=== PATIENT | female | born 1985 | race Caucasian/White ===

== ENCOUNTER 2022-11-16 11:06 | Inpatient (IN) | payer MEDICAID ==
[~2022-11-16] VITALS: Ht 170.2 cm; Wt 124.7 kg
[2022-11-16 12:26] LABS: GLUCOMETER DEV NAME(LOC) POC.BV; POC SARS-COV2 AG, FIA NEGATIVE (NEGATIVE)
[2022-11-16] MEDS ORDERED: HALOPERIDOL 5 MG TABLET PO PRN (16:00)
[2022-11-16] MEDS ORDERED: PNEUMOCOCCAL VACCINE POLYVALENT 0.5 ML SYRINGE [PPSV23] IM. ONE (17:15)
[2022-11-16 18:02] VITALS: BP 115/78; PULSE 75; RESP 18; TEMP 97.7; O2SAT 98
[2022-11-16 21:00] VITALS: BP 117/74; PULSE 87; RESP 19; TEMP 97.5; O2SAT 97
[2022-11-16] MEDS: LORazepam 2 MG TABLET PO PRN (21:11)
[2022-11-16] MEDS: ZOLPIDEM TARTRATE 10 MG TABLET PO PRN (21:11)
[2022-11-16 22:34] VITALS: BP 117/74; PULSE 87; RESP 19; TEMP 97.5
[2022-11-17 08:16] VITALS: BP 100/66; PULSE 79; RESP 18; TEMP 98.1; O2SAT 99
[2022-11-17 08:17] LABS: BASOPHILS % (AUTO) 0.3 % (0.0-2.0); EOSINOPHILS % (AUTO) 1.5 % (1.0-6.0); HEMOGLOBIN 13.1 g/dL (12.0-16.0); LYMPHOCYTES # (AUTO) 1.5 K/uL (1.0-4.8); LYMPHOCYTES % (AUTO) 22.2 % (22.0-44.0); MEAN CORPUSCULAR HEMOGLOBIN 26.9 pg (26.0-34.0); MEAN CORPUSCULAR HGB CONC 31.9 G/dL (31.0-37.0); MEAN CORPUSCULAR VOLUME 84 fL (80-100); MONOCYTES # (AUTO) 0.3 K/uL (0.1-1.0); MONOCYTES % (AUTO) 4.4 % (2.0-9.0); NEUTROPHILS # (AUTO) 4.8 K/uL (1.8-7.7); NEUTROPHILS % (AUTO) 71.6 % (40.0-70.0); PLATELET COUNT (AUTO) 333 K/uL (150-450); RED BLOOD CELL COUNT(AUTO) 4.88 MIL/uL (4.00-5.20); RED CELL DISTRIBUTION WIDTH 15.6 % (11.5-14.5); WHITE BLOOD COUNT (AUTO) 6.7 K/uL (4.5-11.0)
[2022-11-17] MEDS: LORazepam 2 MG TABLET PO PRN (08:39)
[2022-11-17] MEDS: NICOTINE 14 MG/24 HOUR PATCH TD SCH (08:39)
[2022-11-17 08:40] LABS: ALANINE AMINOTRANSFERASE 28 U/L (12-78); ALBUMIN 3.2 g/dL (3.4-5.0); ALKALINE PHOSPHATASE 85 U/L (46-116); ANION GAP 9 mmol/L (8-16); ASPARTATE AMINOTRANSFERASE 22 U/L (15-37); BILIRUBIN,TOTAL 0.3 mg/dL (0.1-1.0); CALCIUM, TOTAL 8.8 mg/dL (8.8-10.5); CARBON DIOXIDE 26 mmol/L (22-29); CHLORIDE 103 mmol/L (98-107); CHOL/HDL RATIO 3.5 (3.9-5.7); CHOLESTEROL 145 mg/dL (131-200); FREE T4 (FREE THYROXINE) 0.88 ng/dL (0.76-1.46); GLOMERULAR FILTR. RATE CALC > 60 mL/min (>60); GLUCOSE,RANDOM 132 mg/dL (70-110); HCG,QUANTITATIVE < 1 mIU/mL (0-6); HDL CHOLESTEROL 42 mg/dL (40-60); LDL CHOL (CALC.) 94 mg/dL (0-130); POTASSIUM 4.1 mmol/L (3.5-5.1); SODIUM SERUM 138 mmol/L (136-145); T4 (THYROXINE) 7.6 mcg/dL (4.7-13.3); THYROID STIMULATING HORMONE 0.93 uIU/mL (0.36-3.74); TOTAL PROTEIN, SERUM 6.5 g/dL (6.4-8.2); TRIGLYCERIDES 44 mg/dL (15-150); UREA NITROGEN, BLOOD 6 mg/dL (7-18)
[2022-11-17 08:51] LABS: ALCOHOL, BLOOD (SERUM) < 3 mg/dL (0-10)
[2022-11-17] MEDS ORDERED: QUEtiapine FUMARATE 100 MG TABLET PO PRN (11:30)
[2022-11-17] MEDS ORDERED: MAGNESIUM HYDROXIDE SUSPENSION 30 ML UDCUP PO PRN (11:30)
[2022-11-17] MEDS ORDERED: TUBERCULIN, PURIFIED PROTEIN DERIVATIVE 5 TU/0.1 ML SYRINGE ID ONE (11:30)
[2022-11-17] MEDS ORDERED: GuaiFENesin/D-METHORPHAN [SUGAR-FREE] 200-20MG/10 ML SYRUP UDCUP PO PRN (11:30)
[2022-11-17] MEDS ORDERED: ACETAMINOPHEN 325 MG TABLET PO PRN (11:30)
[2022-11-17] MEDS ORDERED: HydrOXYzine PAMOATE 50 MG CAPSULE PO PRN (11:30)
[2022-11-17] MEDS ORDERED: MAG HYDROX/AL HYDROX/SIMETH ES 30 ML SUSPENSION UDCUP PO PRN (11:30)
[2022-11-17] MEDS ORDERED: LOPERAMIDE HCL 2 MG CAPSULE PO PRN (11:30)
[2022-11-17] MEDS: LURASIDONE HCL 40 MG TABLET PO SCH (17:00)
[2022-11-17] MEDS: THIAMINE 100 MG TABLET PO SCH (17:00)
[2022-11-17] MEDS: LITHIUM CARBONATE 300 MG CAPSULE PO SCH ×2 (17:00→23:28)
[2022-11-17 23:00] VITALS: BP 108/62; PULSE 78; RESP 18; TEMP 97.8; O2SAT 98
[2022-11-17] MEDS: MELATONIN 5 MG TABLET PO SCH (23:28)
[2022-11-17] MEDS: ZOLPIDEM TARTRATE 10 MG TABLET PO PRN (23:28)
[2022-11-17] MEDS: TraZODone HCL 150 MG TABLET PO SCH (23:28)
[2022-11-17] MEDS: HydrOXYzine HCL 25 MG TABLET PO SCH (23:28)
[2022-11-18] MEDS: FOLIC ACID 1 MG TABLET PO SCH (08:38)
[2022-11-18] MEDS: MULTIVITAMINS WITH MINERALS, THERAPEUTIC TABLET PO SCH (08:38)
[2022-11-18] MEDS: THIAMINE 100 MG TABLET PO SCH ×2 (08:38→17:11)
[2022-11-18] MEDS: OMEGA-3/DHA/EPA/FISH OIL 1,000 MG CAPSULE PO SCH (08:39)
[2022-11-18] MEDS: LITHIUM CARBONATE 300 MG CAPSULE PO SCH ×4 (08:39→20:26)
[2022-11-18] MEDS: LamoTRIgine 25 MG TABLET PO SCH ×2 (08:39→17:10)
[2022-11-18] MEDS: NICOTINE 14 MG/24 HOUR PATCH TD SCH (08:41)
[2022-11-18] MEDS ORDERED: FLUoxetine HCL 20 MG CAPSULE PO SCH (09:00)
[2022-11-18] MEDS ORDERED: LamoTRIgine 25 MG TABLET PO SCH (09:00)
[2022-11-18 09:26] LABS: FREE T4 (FREE THYROXINE) 0.77 ng/dL (0.76-1.46); THYROID STIMULATING HORMONE 1.22 uIU/mL (0.36-3.74)
[2022-11-18 12:25] VITALS: BP 124/85; PULSE 93; RESP 18; TEMP 97.8; O2SAT 96
[2022-11-18] MEDS: LURASIDONE HCL 40 MG TABLET PO SCH (17:00)
[2022-11-18] MEDS: TraZODone HCL 150 MG TABLET PO SCH (20:26)
[2022-11-18] MEDS: HydrOXYzine HCL 25 MG TABLET PO SCH (20:27)
[2022-11-18] MEDS: MELATONIN 5 MG TABLET PO SCH (20:33)
[2022-11-18 20:40] VITALS: BP 108/71; PULSE 78; RESP 18; TEMP 97.9; O2SAT 98
[2022-11-19 04:37] VITALS: BP 121/79; PULSE 78; RESP 18; TEMP 97.8; O2SAT 98
[2022-11-19 08:38] VITALS: BP 132/79; PULSE 89; RESP 17; TEMP 97.8; O2SAT 98
[2022-11-19] MEDS: NICOTINE 14 MG/24 HOUR PATCH TD SCH (09:25)
[2022-11-19] MEDS: LITHIUM CARBONATE 300 MG CAPSULE PO SCH ×4 (09:25→20:28)
[2022-11-19] MEDS: THIAMINE 100 MG TABLET PO SCH ×2 (09:26→16:37)
[2022-11-19] MEDS: LamoTRIgine 25 MG TABLET PO SCH ×2 (09:26→16:37)
[2022-11-19] MEDS: OMEGA-3/DHA/EPA/FISH OIL 1,000 MG CAPSULE PO SCH (09:26)
[2022-11-19] MEDS: FOLIC ACID 1 MG TABLET PO SCH (09:26)
[2022-11-19] MEDS: MULTIVITAMINS WITH MINERALS, THERAPEUTIC TABLET PO SCH (09:26)
[2022-11-19] MEDS: LURASIDONE HCL 40 MG TABLET PO SCH (16:37)
[2022-11-19] MEDS: TraZODone HCL 150 MG TABLET PO SCH (20:28)
[2022-11-19] MEDS: HydrOXYzine HCL 25 MG TABLET PO SCH (20:28)
[2022-11-19] MEDS: MELATONIN 5 MG TABLET PO SCH (20:41)
[2022-11-19 20:53] VITALS: TEMP 97.5
[2022-11-19] MEDS: ZOLPIDEM TARTRATE 10 MG TABLET PO PRN (22:41)
[2022-11-20] MEDS: LamoTRIgine 25 MG TABLET PO SCH ×2 (09:06→17:16)
[2022-11-20] MEDS: FOLIC ACID 1 MG TABLET PO SCH (09:06)
[2022-11-20] MEDS: LORazepam 2 MG TABLET PO PRN (09:07)
[2022-11-20] MEDS: MULTIVITAMINS WITH MINERALS, THERAPEUTIC TABLET PO SCH (09:07)
[2022-11-20] MEDS: THIAMINE 100 MG TABLET PO SCH ×2 (09:07→17:15)
[2022-11-20] MEDS: LITHIUM CARBONATE 300 MG CAPSULE PO SCH ×4 (09:07→20:26)
[2022-11-20] MEDS: OMEGA-3/DHA/EPA/FISH OIL 1,000 MG CAPSULE PO SCH (09:07)
[2022-11-20] MEDS: NICOTINE 14 MG/24 HOUR PATCH TD SCH (09:07)
[2022-11-20 10:03] VITALS: BP 105/65; PULSE 87; RESP 20; TEMP 97; O2SAT 99
[2022-11-20] MEDS ORDERED: ESZOPICLONE 3 MG TABLET PO PRN (15:45)
[2022-11-20] MEDS ORDERED: QUEtiapine FUMARATE 25 MG TABLET PO PRN (15:45)
[2022-11-20] MEDS: LURASIDONE HCL 60 MG TABLET PO SCH (17:15)
[2022-11-20 20:42] VITALS: BP 114/74; PULSE 95; RESP 18; TEMP 98.3; O2SAT 95
[2022-11-20] MEDS ORDERED: TraZODone HCL 100 MG TABLET PO SCH (21:00)
[2022-11-20] MEDS ORDERED: QUEtiapine FUMARATE 200 MG TABLET PO SCH (21:00)
[2022-11-21 08:34] LABS: APPEARANCE,URINE HAZY (CLEAR); BILIRUBIN,URINE NEGATIVE (NEGATIVE); COLOR,URINE LIGHT YELLOW (YELLOW); GLUCOSE, URINE (UA) NEGATIVE (NEGATIVE); KETONES,URINE NEGATIVE (NEGATIVE); LEUKOCYTE ESTERASE ,URINE NEGATIVE (NEGATIVE); NITRATE,URINE NEGATIVE (NEGATIVE); OCCULT BLOOD,URINE NEGATIVE (NEGATIVE); PH,URINE 6.5 (5.0-8.0); PH,URINE DRUG SCREEN 6.5 (5.0-8.0); PROTEIN,URINE NEGATIVE (NEGATIVE); SPECIFIC GRAVITIY, URINE 1.018 (1.003-1.030); UROBILINOGEN,URINE <=1.0 mg/dL (<=1.0)
[2022-11-21 08:40] VITALS: BP 112/59; PULSE 89; RESP 17; TEMP 97.9; O2SAT 95
[2022-11-21 08:45] LABS: ALCOHOL, URINE DRUG SCREEN NEGATIVE (NEGATIVE); AMPHET/METH SCREEN,URINE NEGATIVE (NEGATIVE); BARBITURATE SCREEN, URINE NEGATIVE (NEGATIVE); BENZODIAZEPINES SCREEN,URINE NEGATIVE (NEGATIVE); CANNABINOID SCREEN,URINE POSITIVE (NEGATIVE); COCAINE SCREEN,URINE NEGATIVE (NEGATIVE); METHADONE SCREEN, URINE NEGATIVE (NEGATIVE); OPIATE SCREEN,URINE NEGATIVE (NEGATIVE); PHENCYCLIDINE SCREEN,URINE NEGATIVE (NEGATIVE)
[2022-11-21] MEDS: THIAMINE 100 MG TABLET PO SCH ×2 (09:31→16:59)
[2022-11-21] MEDS: LITHIUM CARBONATE 300 MG CAPSULE PO SCH ×4 (09:31→21:03)
[2022-11-21] MEDS: LamoTRIgine 25 MG TABLET PO SCH ×2 (09:31→16:59)
[2022-11-21] MEDS: FOLIC ACID 1 MG TABLET PO SCH (09:31)
[2022-11-21] MEDS: OMEGA-3/DHA/EPA/FISH OIL 1,000 MG CAPSULE PO SCH (09:31)
[2022-11-21] MEDS: MULTIVITAMINS WITH MINERALS, THERAPEUTIC TABLET PO SCH (09:31)
[2022-11-21] MEDS: NICOTINE 14 MG/24 HOUR PATCH TD SCH (09:32)
[2022-11-21] MEDS: DOCUSATE SODIUM 250 MG CAPSULE PO SCH (10:02)
[2022-11-21] MEDS: LURASIDONE HCL 60 MG TABLET PO SCH (16:59)
[2022-11-21] MEDS ORDERED: GABAPENTIN 300 MG CAPSULE PO PRN (17:15)
[2022-11-21 20:48] VITALS: BP 108/66; PULSE 88; RESP 18; TEMP 97.6; O2SAT 96
[2022-11-21] MEDS ORDERED: TraZODone HCL 100 MG TABLET PO SCH (21:00)
[2022-11-22] MEDS: DOCUSATE SODIUM 250 MG CAPSULE PO SCH (06:38)
[2022-11-22 08:34] VITALS: BP 111/72; PULSE 85; RESP 18; TEMP 97.7; O2SAT 96
[2022-11-22] MEDS: LITHIUM CARBONATE 300 MG CAPSULE PO SCH ×4 (08:47→20:44)
[2022-11-22] MEDS: MULTIVITAMINS WITH MINERALS, THERAPEUTIC TABLET PO SCH (08:48)
[2022-11-22] MEDS: FOLIC ACID 1 MG TABLET PO SCH (08:48)
[2022-11-22] MEDS: OMEGA-3/DHA/EPA/FISH OIL 1,000 MG CAPSULE PO SCH (08:48)
[2022-11-22] MEDS: NICOTINE 14 MG/24 HOUR PATCH TD SCH (08:48)
[2022-11-22] MEDS: LamoTRIgine 25 MG TABLET PO SCH ×2 (08:48→17:11)
[2022-11-22] MEDS: THIAMINE 100 MG TABLET PO SCH ×2 (08:48→17:11)
[2022-11-22] MEDS ORDERED: BuPROPion HCL XL 150 MG ER TABLET PO SCH (09:00)
[2022-11-22] MEDS ORDERED: LURASIDONE HCL 80 MG TABLET PO SCH (17:00)
[2022-11-22] MEDS: LURASIDONE HCL 20 MG TABLET PO SCH (17:31)
[2022-11-22 20:39] VITALS: BP 120/58; PULSE 76; RESP 18; TEMP 98.1; O2SAT 97
[2022-11-22] MEDS: TraZODone HCL 100 MG TABLET PO SCH (20:45)
[2022-11-23] MEDS: LITHIUM CARBONATE 300 MG CAPSULE PO SCH ×3 (06:33→16:28)
[2022-11-23] MEDS: DOCUSATE SODIUM 250 MG CAPSULE PO SCH (06:33)
[2022-11-23] MEDS: OMEGA-3/DHA/EPA/FISH OIL 1,000 MG CAPSULE PO SCH (08:34)
[2022-11-23] MEDS: LamoTRIgine 25 MG TABLET PO SCH ×2 (08:34→16:28)
[2022-11-23] MEDS: THIAMINE 100 MG TABLET PO SCH ×2 (08:35→16:29)
[2022-11-23] MEDS: MULTIVITAMINS WITH MINERALS, THERAPEUTIC TABLET PO SCH (08:36)
[2022-11-23] MEDS: NICOTINE 14 MG/24 HOUR PATCH TD SCH (08:36)
[2022-11-23] MEDS: FOLIC ACID 1 MG TABLET PO SCH (08:36)
[2022-11-23 08:51] VITALS: BP 132/69; PULSE 93; RESP 18; TEMP 97.5; O2SAT 97
[2022-11-23] MEDS ORDERED: BuPROPion HCL XL 150 MG ER TABLET PO SCH (09:00)
[2022-11-23] MEDS: LURASIDONE HCL 20 MG TABLET PO SCH (16:29)
[2022-11-23 20:45] VITALS: BP 105/65; PULSE 67; RESP 19; TEMP 98; O2SAT 96
[2022-11-23] MEDS: TraZODone HCL 100 MG TABLET PO SCH (21:10)
[2022-11-23] MEDS: LITHIUM CARBONATE 600 MG CAPSULE PO SCH (21:10)
[2022-11-24] MEDS: DOCUSATE SODIUM 250 MG CAPSULE PO SCH (06:29)
[2022-11-24] MEDS: LITHIUM CARBONATE 300 MG CAPSULE PO SCH ×3 (07:10→17:07)
[2022-11-24 08:26] VITALS: BP 89/66; PULSE 91; RESP 17; TEMP 96.7; O2SAT 98
[2022-11-24 09:03] VITALS: BP 100/57; PULSE 69; RESP 18; O2SAT 97
[2022-11-24] MEDS: OMEGA-3/DHA/EPA/FISH OIL 1,000 MG CAPSULE PO SCH (09:30)
[2022-11-24] MEDS: NICOTINE 14 MG/24 HOUR PATCH TD SCH (09:30)
[2022-11-24] MEDS: MULTIVITAMINS WITH MINERALS, THERAPEUTIC TABLET PO SCH (09:30)
[2022-11-24] MEDS: BuPROPion HCL XL 150 MG ER TABLET PO SCH (09:31)
[2022-11-24] MEDS: FOLIC ACID 1 MG TABLET PO SCH (09:31)
[2022-11-24] MEDS: LamoTRIgine 25 MG TABLET PO SCH ×2 (09:31→17:07)
[2022-11-24] MEDS: THIAMINE 100 MG TABLET PO SCH ×2 (09:31→17:07)
[2022-11-24] MEDS: LURASIDONE HCL 60 MG TABLET PO SCH (17:07)
[2022-11-24] MEDS: TraZODone HCL 100 MG TABLET PO SCH (20:39)
[2022-11-24] MEDS: LITHIUM CARBONATE 600 MG CAPSULE PO SCH (20:39)
[2022-11-24 22:36] VITALS: BP 101/62; PULSE 77; RESP 18; TEMP 97.8; O2SAT 98
[2022-11-25] MEDS: LITHIUM CARBONATE 300 MG CAPSULE PO SCH ×3 (06:45→17:11)
[2022-11-25] MEDS: DOCUSATE SODIUM 250 MG CAPSULE PO SCH (06:45)
[2022-11-25] MEDS: OMEGA-3/DHA/EPA/FISH OIL 1,000 MG CAPSULE PO SCH (08:28)
[2022-11-25] MEDS: NICOTINE 14 MG/24 HOUR PATCH TD SCH (08:29)
[2022-11-25] MEDS: LamoTRIgine 25 MG TABLET PO SCH ×2 (08:29→17:11)
[2022-11-25] MEDS: MULTIVITAMINS WITH MINERALS, THERAPEUTIC TABLET PO SCH (08:29)
[2022-11-25] MEDS: FOLIC ACID 1 MG TABLET PO SCH (08:29)
[2022-11-25] MEDS: THIAMINE 100 MG TABLET PO SCH ×2 (08:29→17:11)
[2022-11-25] MEDS: BuPROPion HCL XL 150 MG ER TABLET PO SCH (08:29)
[2022-11-25 08:50] VITALS: BP 106/64; PULSE 88; RESP 17; TEMP 98; O2SAT 98
[2022-11-25] MEDS: LURASIDONE HCL 60 MG TABLET PO SCH (17:11)
[2022-11-25] MEDS: TraZODone HCL 100 MG TABLET PO SCH (20:14)
[2022-11-25] MEDS: LITHIUM CARBONATE 600 MG CAPSULE PO SCH (20:14)
[2022-11-25 20:35] VITALS: BP 103/61; PULSE 60; RESP 18; TEMP 97.7; O2SAT 100
[2022-11-26] MEDS: LITHIUM CARBONATE 300 MG CAPSULE PO SCH ×3 (06:09→16:44)
[2022-11-26] MEDS: DOCUSATE SODIUM 250 MG CAPSULE PO SCH (06:09)
[2022-11-26 09:00] VITALS: BP 104/56; PULSE 85; RESP 18; TEMP 98.2; O2SAT 98
[2022-11-26] MEDS: MULTIVITAMINS WITH MINERALS, THERAPEUTIC TABLET PO SCH (09:27)
[2022-11-26] MEDS: LamoTRIgine 25 MG TABLET PO SCH ×2 (09:28→16:44)
[2022-11-26] MEDS: FOLIC ACID 1 MG TABLET PO SCH (09:28)
[2022-11-26] MEDS: THIAMINE 100 MG TABLET PO SCH ×2 (09:28→16:44)
[2022-11-26] MEDS: BuPROPion HCL XL 150 MG ER TABLET PO SCH (09:28)
[2022-11-26] MEDS: OMEGA-3/DHA/EPA/FISH OIL 1,000 MG CAPSULE PO SCH (09:28)
[2022-11-26] MEDS: NICOTINE 14 MG/24 HOUR PATCH TD SCH (09:28)
[2022-11-26] MEDS: LURASIDONE HCL 60 MG TABLET PO SCH (16:44)
[2022-11-26] MEDS: TraZODone HCL 100 MG TABLET PO SCH ×2 (21:00→23:45)
[2022-11-26] MEDS: LITHIUM CARBONATE 600 MG CAPSULE PO SCH ×2 (21:00→23:45)
[2022-11-26] MEDS ORDERED: THIA100T80 PO (22:44)
[2022-11-26] MEDS ORDERED: FOLI-130 PO (22:44)
[2022-11-26] MEDS ORDERED: FLUO20CA36 PO (22:44)
[2022-11-26] MEDS ORDERED: LURA40TA2 PO (22:44)
[2022-11-26] MEDS ORDERED: LAMO25TA36 PO (22:44)
[2022-11-26] MEDS ORDERED: MULT-1239 PO (22:44)
[2022-11-26] MEDS ORDERED: OMEG-135 PO (22:44)
[2022-11-26] MEDS ORDERED: NICO-703 TD (22:44)
[2022-11-26] MEDS ORDERED: MELA5TAB40 PO (22:44)
[2022-11-26 23:43] VITALS: BP 124/69; PULSE 79; RESP 18; TEMP 98.2; O2SAT 97
[2022-11-27] MEDS: LITHIUM CARBONATE 300 MG CAPSULE PO SCH ×3 (06:53→17:15)
[2022-11-27] MEDS: DOCUSATE SODIUM 250 MG CAPSULE PO SCH (06:53)
[2022-11-27] MEDS: LamoTRIgine 25 MG TABLET PO SCH ×2 (08:38→17:15)
[2022-11-27] MEDS: MULTIVITAMINS WITH MINERALS, THERAPEUTIC TABLET PO SCH (08:38)
[2022-11-27] MEDS: OMEGA-3/DHA/EPA/FISH OIL 1,000 MG CAPSULE PO SCH (08:38)
[2022-11-27] MEDS: BuPROPion HCL XL 150 MG ER TABLET PO SCH (08:38)
[2022-11-27] MEDS: FOLIC ACID 1 MG TABLET PO SCH (08:38)
[2022-11-27] MEDS: THIAMINE 100 MG TABLET PO SCH (08:38)
[2022-11-27] MEDS: NICOTINE 14 MG/24 HOUR PATCH TD SCH (08:41)
[2022-11-27 08:42] VITALS: BP 104/58; PULSE 76; RESP 18; TEMP 97.9; O2SAT 96
[2022-11-27] MEDS: LURASIDONE HCL 60 MG TABLET PO SCH (17:15)
[2022-11-27] MEDS: PROPRANOLOL HCL 10 MG TABLET PO SCH ×2 (17:15→20:32)
[2022-11-27] MEDS: LITHIUM CARBONATE 600 MG CAPSULE PO SCH (20:32)
[2022-11-27] MEDS: TraZODone HCL 100 MG TABLET PO SCH (20:33)
[2022-11-27 20:48] VITALS: BP 115/80; PULSE 70; RESP 19; TEMP 97.9; O2SAT 97
[2022-11-27] MEDS ORDERED: ROPINIRole HCL 1 MG TABLET PO SCH (21:00)
[2022-11-28] MEDS: LITHIUM CARBONATE 300 MG CAPSULE PO SCH ×3 (06:26→17:00)
[2022-11-28] MEDS: DOCUSATE SODIUM 250 MG CAPSULE PO SCH (06:26)
[2022-11-28 08:37] VITALS: BP 107/59; PULSE 81; RESP 18; TEMP 97.5; O2SAT 98
[2022-11-28] MEDS: OMEGA-3/DHA/EPA/FISH OIL 1,000 MG CAPSULE PO SCH (09:39)
[2022-11-28] MEDS: BuPROPion HCL XL 150 MG ER TABLET PO SCH (09:39)
[2022-11-28] MEDS: PROPRANOLOL HCL 10 MG TABLET PO SCH ×3 (09:39→17:00)
[2022-11-28] MEDS: NICOTINE 14 MG/24 HOUR PATCH TD SCH (09:39)
[2022-11-28] MEDS: LamoTRIgine 25 MG TABLET PO SCH ×2 (09:40→17:00)
[2022-11-28] MEDS: MULTIVITAMINS WITH MINERALS, THERAPEUTIC TABLET PO SCH (09:40)
[2022-11-28 12:57] VITALS: BP 110/66; RESP 18; O2SAT 98
[2022-11-28 14:52] VITALS: RESP 18; O2SAT 98
[2022-11-28] MEDS: TraMADol HCL 50 MG TABLET PO PRN (14:52)
[2022-11-28 15:52] VITALS: RESP 18; O2SAT 98
[2022-11-28 16:43] VITALS: BP 100/69; RESP 18; O2SAT 100
[2022-11-28] MEDS: LURASIDONE HCL 60 MG TABLET PO SCH (17:00)
[2022-11-28 20:42] VITALS: BP 100/69; PULSE 83; RESP 18; TEMP 97.7; O2SAT 100
[2022-11-28] MEDS: LITHIUM CARBONATE 600 MG CAPSULE PO SCH (21:22)
[2022-11-28] MEDS: TraZODone HCL 100 MG TABLET PO SCH (21:23)
[2022-11-29 03:05] VITALS: RESP 18
[2022-11-29] MEDS: TraMADol HCL 50 MG TABLET PO PRN (03:07)
[2022-11-29 04:07] VITALS: RESP 16
[2022-11-29] MEDS: LITHIUM CARBONATE 300 MG CAPSULE PO SCH ×3 (07:01→17:07)
[2022-11-29] MEDS: DOCUSATE SODIUM 250 MG CAPSULE PO SCH (07:01)
[2022-11-29 08:50] VITALS: BP 100/60; PULSE 74; RESP 18; TEMP 97.9; O2SAT 98
[2022-11-29] MEDS: BuPROPion HCL XL 150 MG ER TABLET PO SCH (08:53)
[2022-11-29] MEDS: OMEGA-3/DHA/EPA/FISH OIL 1,000 MG CAPSULE PO SCH (08:53)
[2022-11-29] MEDS: NICOTINE 14 MG/24 HOUR PATCH TD SCH (08:54)
[2022-11-29] MEDS: MULTIVITAMINS WITH MINERALS, THERAPEUTIC TABLET PO SCH (08:54)
[2022-11-29] MEDS: LamoTRIgine 25 MG TABLET PO SCH ×2 (08:54→17:06)
[2022-11-29] MEDS: PROPRANOLOL HCL 20 MG TABLET PO SCH ×4 (08:58→21:53)
[2022-11-29 13:04] VITALS: BP 104/62; RESP 18; O2SAT 98
[2022-11-29] MEDS ORDERED: LAMO25TA36 PO (15:08)
[2022-11-29] MEDS ORDERED: PROP20TA96 PO (15:08)
[2022-11-29] MEDS ORDERED: OMEG-135 PO (15:08)
[2022-11-29] MEDS ORDERED: BUPR-49 PO (15:08)
[2022-11-29] MEDS ORDERED: TRAZ-257 PO (15:08)
[2022-11-29] MEDS ORDERED: LITH600C5 PO (15:08)
[2022-11-29] MEDS ORDERED: LURA40TA4 PO (15:08)
[2022-11-29] MEDS ORDERED: LITH300C3 PO (15:08)
[2022-11-29] MEDS ORDERED: ROPI2TAB26 PO (15:08)
[2022-11-29] MEDS ORDERED: LURASIDONE HCL 40 MG TABLET PO SCH (17:00)
[2022-11-29 17:04] VITALS: BP 101/62; RESP 17; O2SAT 98
[2022-11-29 20:01] VITALS: BP 100/61; PULSE 70; RESP 18; TEMP 97.8; O2SAT 98
[2022-11-29] MEDS: TraZODone HCL 100 MG TABLET PO SCH (21:52)
[2022-11-29] MEDS: LITHIUM CARBONATE 600 MG CAPSULE PO SCH (21:53)
[2022-11-30] MEDS: LITHIUM CARBONATE 300 MG CAPSULE PO SCH ×2 (06:50→12:08)
[2022-11-30] MEDS: DOCUSATE SODIUM 250 MG CAPSULE PO SCH (06:50)
[2022-11-30 08:29] VITALS: BP 119/68; PULSE 78; RESP 18; TEMP 97.9; O2SAT 98
[2022-11-30] MEDS: BuPROPion HCL XL 150 MG ER TABLET PO SCH (08:42)
[2022-11-30] MEDS: NICOTINE 14 MG/24 HOUR PATCH TD SCH (08:43)
[2022-11-30] MEDS: OMEGA-3/DHA/EPA/FISH OIL 1,000 MG CAPSULE PO SCH (08:43)
[2022-11-30] MEDS: MULTIVITAMINS WITH MINERALS, THERAPEUTIC TABLET PO SCH (08:43)
[2022-11-30] MEDS: PROPRANOLOL HCL 20 MG TABLET PO SCH ×2 (08:44→12:08)
[2022-11-30] MEDS: LamoTRIgine 25 MG TABLET PO SCH (08:49)
[2022-11-30] MEDS ORDERED: LAMO25TA36 PO (09:51)
[2022-11-30] MEDS ORDERED: BUPR-344 PO (09:54)
[2022-11-30] MEDS ORDERED: LITH300C3 PO ×2 (09:55)
[2022-11-30] MEDS ORDERED: TRAZ150T80 PO (09:56)
[2022-11-30] MEDS ORDERED: ROPI2TAB26 PO (09:56)
[2022-11-30] MEDS ORDERED: PROP10TA73 PO (09:56)
== END 2022-11-30 11:45 | disposition home or self-care (01) | DRG 753 ==
LOC: B3A 15:57 → B2S 11-17 18:46
PROVIDERS: ADMIT Psychiatry & Neurology Psychiatry; ATTEND Psychiatry & Neurology Psychiatry
DX: F31.4 Bipolar disorder, current episode depressed, severe, without psychotic features (principal); R45.851 Suicidal ideations; E66.01 Morbid (severe) obesity due to excess calories; G25.81 Restless legs syndrome; Z20.822 Contact with and (suspected) exposure to COVID-19; G47.00 Insomnia, unspecified; R73.9 Hyperglycemia, unspecified; R10.9 Unspecified abdominal pain; F43.10 Post-traumatic stress disorder, unspecified; F90.9 Attention-deficit hyperactivity disorder, unspecified type; Z68.41 Body mass index [BMI] 40.0-44.9, adult; Z59.00 Homelessness unspecified
CPT/HCPCS: 80053; 80061; 80178; 80307; 81003; 84436; 84439; 84443; 84702; 84703; 85025; 86592; 90732; G0480; Q9967

== ENCOUNTER 2022-11-17 18:37 | Emergency (ER) | payer MEDICAID, OTHER ==
[~2022-11-17] VITALS: Ht 170.2 cm; Wt 125.0 kg
[2022-11-17 19:07] VITALS: BP 115/67; PULSE 76; RESP 18; TEMP 97.6
[2022-11-17] MEDS ORDERED: ACETAMINOPHEN 500 MG TABLET PO ONE (19:15)
== END 2022-11-17 21:01 | disposition home or self-care (01) ==
LOC: EMS 18:38
DX: S00.33XA Contusion of nose, initial encounter (principal); Y04.8XXA Assault by other bodily force, initial encounter; Y93.89 Activity, other specified; Y92.89 Other specified places as the place of occurrence of the external cause; Y99.8 Other external cause status
CPT/HCPCS: 70450; 70486; 72125; 99285; Q9967

== ENCOUNTER 2022-11-26 17:29 | Emergency (ER) | payer OTHER ==
[~2022-11-26] VITALS: Ht 172.7 cm; Wt 111.4 kg
[2022-11-26 18:24] VITALS: TEMP 98.5
[2022-11-26 19:19] LABS: BASOPHILS % (AUTO) 0.3 % (0.0-2.0); EOSINOPHILS % (AUTO) 2.5 % (1.0-6.0); HEMATOCRIT 38.2 % (36-46); HEMOGLOBIN 11.8 g/dL (12.0-16.0); LYMPHOCYTES # (AUTO) 2.1 K/uL (1.0-4.8); LYMPHOCYTES % (AUTO) 16.2 % (22.0-44.0); MEAN CORPUSCULAR HEMOGLOBIN 25.9 pg (26.0-34.0); MEAN CORPUSCULAR VOLUME 84 fL (80-100); MONOCYTES # (AUTO) 0.6 K/uL (0.1-1.0); MONOCYTES % (AUTO) 4.5 % (2.0-9.0); NEUTROPHILS % (AUTO) 76.5 % (40.0-70.0); PLATELET COUNT (AUTO) 350 K/uL (150-450); RED BLOOD CELL COUNT(AUTO) 4.56 MIL/uL (4.00-5.20); RED CELL DISTRIBUTION WIDTH 15.4 % (11.5-14.5); WHITE BLOOD COUNT (AUTO) 13.1 K/uL (4.5-11.0)
[2022-11-26 19:22] LABS: APPEARANCE,URINE CLEAR (CLEAR); BILIRUBIN,URINE NEGATIVE (NEGATIVE); COLOR,URINE LIGHT YELLOW (YELLOW); GLUCOSE, URINE (UA) NEGATIVE (NEGATIVE); KETONES,URINE NEGATIVE (NEGATIVE); LEUKOCYTE ESTERASE ,URINE NEGATIVE (NEGATIVE); NITRATE,URINE NEGATIVE (NEGATIVE); OCCULT BLOOD,URINE NEGATIVE (NEGATIVE); PROTEIN,URINE NEGATIVE (NEGATIVE); UROBILINOGEN,URINE <=1.0 mg/dL (<=1.0)
[2022-11-26 19:26] LABS: ANION GAP 11 mmol/L (8-16); CALCIUM, TOTAL 8.6 mg/dL (8.8-10.5); CARBON DIOXIDE 29 mmol/L (22-29); CHLORIDE 103 mmol/L (98-107); CREATININE 0.65 mg/dL (0.60-1.30); GLOMERULAR FILTR. RATE CALC > 60 mL/min (>60); GLUCOSE,RANDOM 116 mg/dL (70-110); POTASSIUM 3.6 mmol/L (3.5-5.1); SODIUM SERUM 143 mmol/L (136-145); UREA NITROGEN, BLOOD 10 mg/dL (7-18)
[2022-11-26 19:28] LABS: BACTERIA,URINE None Seen /HPF (None Seen); RBC,URINE 0-2 /HPF (0-2); SQUAMOUS EPITHELIAL CELL,UR Few /LPF (None Seen); WBC,URINE 0-2 /HPF (0-5)
[2022-11-26 19:32] LABS: ALANINE AMINOTRANSFERASE 20 U/L (12-78); ALBUMIN 2.9 g/dL (3.4-5.0); ALKALINE PHOSPHATASE 70 U/L (46-116); ASPARTATE AMINOTRANSFERASE 18 U/L (15-37); BILIRUBIN,TOTAL 0.1 mg/dL (0.1-1.0); LIPASE 34 U/L (16-77)
[2022-11-26 20:20] VITALS: BP 115/53; PULSE 73; RESP 16
[2022-11-26] MEDS ORDERED: TraMADol HCL 50 MG TABLET PO ONE (20:45)
[2022-11-26] MEDS ORDERED: FOLI-130 PO (22:44)
[2022-11-26] MEDS ORDERED: LURA40TA2 PO (22:44)
[2022-11-26] MEDS ORDERED: THIA100T80 PO (22:44)
[2022-11-26] MEDS ORDERED: MELA5TAB40 PO (22:44)
[2022-11-26] MEDS ORDERED: MULT-1239 PO (22:44)
[2022-11-26] MEDS ORDERED: OMEG-135 PO (22:44)
[2022-11-26] MEDS ORDERED: NICO-703 TD (22:44)
[2022-11-26] MEDS ORDERED: FLUO20CA36 PO (22:44)
[2022-11-26] MEDS ORDERED: LAMO25TA36 PO (22:44)
== END 2022-11-26 23:30 | disposition home or self-care (01) ==
LOC: EMS 17:32
DX: K57.90 Diverticulosis of intestine, part unspecified, without perforation or abscess without bleeding (principal); F31.9 Bipolar disorder, unspecified; R10.12 Left upper quadrant pain; F41.9 Anxiety disorder, unspecified; F12.90 Cannabis use, unspecified, uncomplicated; Z98.84 Bariatric surgery status; Z98.890 Other specified postprocedural states
CPT/HCPCS: 74176; 80053; 81001; 83690; 84703; 85025; 93005; 99284

== ENCOUNTER 2023-04-17 21:58 | Emergency (ER) | payer OTHER ==
[~2023-04-17] VITALS: Ht 172.7 cm; Wt 114.0 kg
[~2023-04-17 21:58] MED LIST: BUPR-344 PO; BUPR-49 PO; LAMO25TA36 PO; LITH300C3 PO; LITH600C5 PO; LURA40TA2 PO; LURA40TA4 PO; OMEG-135 PO; PROP10TA73 PO; PROP20TA96 PO; ROPI2TAB26 PO; TRAZ-257 PO; TRAZ150T80 PO
[2023-04-17 22:21] VITALS: TEMP 98.7
[2023-04-17 23:39] LABS: BASOPHILS % (AUTO) 0.4 % (0.0-2.0); EOSINOPHILS % (AUTO) 2.2 % (1.0-6.0); HEMATOCRIT 36.4 % (36-46); HEMOGLOBIN 11.5 g/dL (12.0-16.0); LYMPHOCYTES # (AUTO) 2.6 K/uL (1.0-4.8); LYMPHOCYTES % (AUTO) 19.4 % (22.0-44.0); MEAN CORPUSCULAR HEMOGLOBIN 25.8 pg (26.0-34.0); MEAN CORPUSCULAR HGB CONC 31.6 G/dL (31.0-37.0); MEAN CORPUSCULAR VOLUME 82 fL (80-100); MONOCYTES # (AUTO) 0.9 K/uL (0.1-1.0); MONOCYTES % (AUTO) 6.9 % (2.0-9.0); NEUTROPHILS # (AUTO) 9.5 K/uL (1.8-7.7); NEUTROPHILS % (AUTO) 71.1 % (40.0-70.0); PLATELET COUNT (AUTO) 315 K/uL (150-450); RED BLOOD CELL COUNT(AUTO) 4.46 MIL/uL (4.00-5.20); RED CELL DISTRIBUTION WIDTH 17.4 % (11.5-14.5); WHITE BLOOD COUNT (AUTO) 13.4 K/uL (4.5-11.0)
[2023-04-17 23:50] LABS: ANION GAP 8 mmol/L (8-16); CALCIUM, TOTAL 8.9 mg/dL (8.8-10.5); CARBON DIOXIDE 25 mmol/L (22-29); CHLORIDE 105 mmol/L (98-107); CREATININE 1.06 mg/dL (0.60-1.30); GLOMERULAR FILTR. RATE CALC 59 mL/min (>60); GLUCOSE,RANDOM 86 mg/dL (70-110); POTASSIUM 3.3 mmol/L (3.5-5.1); SODIUM SERUM 138 mmol/L (136-145); UREA NITROGEN, BLOOD 12 mg/dL (7-18)
[2023-04-17 23:55] LABS: ALANINE AMINOTRANSFERASE 29 U/L (12-78); ALBUMIN 3.2 g/dL (3.4-5.0); ALKALINE PHOSPHATASE 75 U/L (46-116); ASPARTATE AMINOTRANSFERASE 28 U/L (15-37); BILIRUBIN,TOTAL 0.2 mg/dL (0.1-1.0)
[2023-04-17 23:59] LABS: LITHIUM 0.36 mmol/L (0.60-1.20)
[2023-04-18 00:02] LABS: ALCOHOL, BLOOD (SERUM) < 3 mg/dL (0-10)
[2023-04-18] MEDS ORDERED: POTASSIUM CHLORIDE 20 MEQ ER TABLET PO ONE (02:00)
[2023-04-18 02:48] LABS: APPEARANCE,URINE CLEAR (CLEAR); BILIRUBIN,URINE NEGATIVE (NEGATIVE); COLOR,URINE LIGHT YELLOW (YELLOW); GLUCOSE, URINE (UA) NEGATIVE (NEGATIVE); KETONES,URINE NEGATIVE (NEGATIVE); LEUKOCYTE ESTERASE ,URINE NEGATIVE (NEGATIVE); NITRATE,URINE NEGATIVE (NEGATIVE); OCCULT BLOOD,URINE NEGATIVE (NEGATIVE); PROTEIN,URINE NEGATIVE (NEGATIVE); SPECIFIC GRAVITIY, URINE 1.009 (1.003-1.030); UROBILINOGEN,URINE <=1.0 mg/dL (<=1.0)
[2023-04-18 02:55] LABS: ALCOHOL, URINE DRUG SCREEN NEGATIVE (NEGATIVE); AMPHET/METH SCREEN,URINE NEGATIVE (NEGATIVE); BARBITURATE SCREEN, URINE NEGATIVE (NEGATIVE); BENZODIAZEPINES SCREEN,URINE NEGATIVE (NEGATIVE); CANNABINOID SCREEN,URINE POSITIVE (NEGATIVE); COCAINE SCREEN,URINE NEGATIVE (NEGATIVE); METHADONE SCREEN, URINE NEGATIVE (NEGATIVE); OPIATE SCREEN,URINE NEGATIVE (NEGATIVE); PHENCYCLIDINE SCREEN,URINE NEGATIVE (NEGATIVE)
[2023-04-18 03:23] LABS: COVID AG,FIA SOURCE NASAL SWAB
[2023-04-18 03:41] LABS: SARS-COV2 (COVID) ANTIGEN,FIA Negative (Negative)
[2023-04-18 04:09] VITALS: BP 110/68; PULSE 62; RESP 15
== END 2023-04-18 04:00 | disposition home or self-care (01) ==
LOC: EMS 22:06
DX: F41.9 Anxiety disorder, unspecified (principal); F32.A Depression, unspecified; F17.210 Nicotine dependence, cigarettes, uncomplicated; F12.90 Cannabis use, unspecified, uncomplicated; E66.01 Morbid (severe) obesity due to excess calories; Z87.442 Personal history of urinary calculi; Z20.822 Contact with and (suspected) exposure to COVID-19; Z59.00 Homelessness unspecified
CPT/HCPCS: 80053; 80178; 80307; 81003; 85025; 99283; G0480